=== PATIENT | female | born 1980 | race Caucasian/White ===

== ENCOUNTER 2021-07-31 16:58 | Inpatient (IN) | payer OTHER ==
[2021-07-31 20:03] VITALS: BMI 24.0
[2021-07-31] MEDS ORDERED: LOPERAMIDE HCL 2 MG CAPSULE PO PRN (21:01)
[2021-07-31] MEDS ORDERED: MAGNESIUM HYDROX 2400MG/30ML ORAL SUSPENSION 30 ML CUP PO PRN (21:01)
[2021-07-31] MEDS ORDERED: MAG HYDROX/AL HYDROX/SIMETH 30 ML UNIT-DOSE CUP PO PRN (21:01)
[2021-07-31] MEDS ORDERED: ONDANSETRON *ODT* 4 MG TABLET SL PRN (21:01)
[2021-07-31] MEDS ORDERED: MAGNESIUM CITRATE 300 ML BOTTLE PO PRN (21:01)
[2021-07-31] MEDS ORDERED: BISMUTH SUBSALICYLATE 524 MG/30 ML PO PRN (21:01)
[2021-07-31] MEDS ORDERED: MENTHOL/PHENOL 1 EACH UD MM PRN (21:01)
[2021-07-31] MEDS ORDERED: chlordiazePOXIDE HCL 25 MG CAPSULE PO PRN (21:01)
[2021-07-31] MEDS ORDERED: ACETAMINOPHEN 325 MG TABLET (FP) PO PRN ×2 (21:01)
[2021-08-01] MEDS: MELATONIN 5 MG TABLETS PO SCH ×2 (02:33→22:29)
[2021-08-01] MEDS: chlordiazePOXIDE HCL 25 MG CAPSULE PO SCH ×5 (02:33→22:46)
[2021-08-01] MEDS: THIAMINE HCL 100 MG TABLET (FP) PO SCH ×2 (02:35→22:28)
[2021-08-01] MEDS: hydrOXYzine PAMOATE 25 MG CAPSULE (FP) PO SCH ×6 (02:36→22:29)
[2021-08-01] MEDS: PRENATAL VITAMINS W/ FOLIC ACID TABLET (FP) PO SCH (10:06)
[2021-08-01] MEDS: NICOTINE 14 MG/24 HOURS TOPICAL PATCH TD SCH (10:07)
[2021-08-01] MEDS: IBUPROFEN 400 MG TABLET (FP) PO PRN ×2 (10:08→22:29)
[2021-08-01 10:52] LABS: HEMATOCRIT 34.5 % (32.4-45.2); HEMOGLOBIN 12.2 GM/dL (10.7-15.3); MCH 34.6 pg (25.7-33.7); MCHC 35.3 g/dl (32.0-36.0); MEAN PLT VOLUME 8.7 fl (7.5-11.1); PLATELET COUNT 178 10^3/uL (134-434); RBC 3.52 M/mm3 (3.60-5.2); RDW 14.2 % (11.6-15.6); WHITE BLOOD COUNT 5.1 K/mm3 (4.0-10.0)
[2021-08-01 10:55] LABS: CALCIUM 9.3 mg/dL (8.5-10.1)
[2021-08-01 10:56] LABS: ALBUMIN 3.8 g/dl (3.4-5.0); BLOOD UREA NITROGEN 8.8 mg/dL (7-18)
[2021-08-01 10:59] LABS: CREATININE 0.5 mg/dL (0.55-1.3)
[2021-08-01] MEDS: SUVOREXANT 10 MG TABLET PO PRN (22:30)
[2021-08-02] MEDS: hydrOXYzine PAMOATE 25 MG CAPSULE (FP) PO SCH ×5 (06:28→22:16)
[2021-08-02] MEDS: chlordiazePOXIDE HCL 25 MG CAPSULE PO SCH ×4 (06:28→22:13)
[2021-08-02] MEDS: PRENATAL VITAMINS W/ FOLIC ACID TABLET (FP) PO SCH (10:32)
[2021-08-02] MEDS: METHOCARBAMOL 500 MG TABLET PO PRN (10:32)
[2021-08-02] MEDS: NICOTINE 14 MG/24 HOURS TOPICAL PATCH TD SCH (10:34)
[2021-08-02] MEDS: NICOTINE 10 MG CARTRIDGE (INHALER) IH PRN (10:34)
[2021-08-02] MEDS: IBUPROFEN 400 MG TABLET (FP) PO PRN ×2 (10:35→18:07)
[2021-08-02] MEDS: MINERAL OIL/PETROLAT/WATER TOPICAL CREAM 113 GM JAR TP SCH ×2 (15:28→22:14)
[2021-08-02] MEDS: THIAMINE HCL 100 MG TABLET (FP) PO SCH (22:14)
[2021-08-02] MEDS: SUVOREXANT 10 MG TABLET PO PRN (22:15)
[2021-08-03] MEDS ORDERED: chlordiazePOXIDE HCL 10 MG CAPSULE PO PRN
[2021-08-03] MEDS: hydrOXYzine PAMOATE 25 MG CAPSULE (FP) PO SCH ×5 (05:32→22:08)
[2021-08-03] MEDS: chlordiazePOXIDE HCL 10 MG CAPSULE PO SCH ×4 (05:32→22:08)
[2021-08-03] MEDS ORDERED: HYDROCORTISONE 0.5% TOPICAL CREAM 30 GM TUBE TP PRN (10:33)
[2021-08-03] MEDS: PRENATAL VITAMINS W/ FOLIC ACID TABLET (FP) PO SCH (10:41)
[2021-08-03] MEDS: METHOCARBAMOL 500 MG TABLET PO PRN (10:41)
[2021-08-03] MEDS: MINERAL OIL/PETROLAT/WATER TOPICAL CREAM 113 GM JAR TP SCH ×2 (10:42→22:09)
[2021-08-03] MEDS: NICOTINE 14 MG/24 HOURS TOPICAL PATCH TD SCH (10:44)
[2021-08-03] MEDS: NICOTINE 10 MG CARTRIDGE (INHALER) IH PRN (10:44)
[2021-08-03] MEDS: IBUPROFEN 400 MG TABLET (FP) PO PRN ×2 (10:45→22:12)
[2021-08-03] MEDS: SUVOREXANT 10 MG TABLET PO PRN (22:08)
[2021-08-03] MEDS: THIAMINE HCL 100 MG TABLET (FP) PO SCH (22:08)
[2021-08-04] MEDS ORDERED: chlordiazePOXIDE HCL 10 MG CAPSULE PO SCH (05:00)
[2021-08-04] MEDS: hydrOXYzine PAMOATE 25 MG CAPSULE (FP) PO SCH ×2 (06:08→10:23)
[2021-08-04] MEDS: IBUPROFEN 400 MG TABLET (FP) PO PRN (06:09)
[2021-08-04 09:38] VITALS: BP 104/53; PULSE 87; TEMP 98.2
[2021-08-04] MEDS: METHOCARBAMOL 500 MG TABLET PO PRN (10:21)
[2021-08-04] MEDS: PRENATAL VITAMINS W/ FOLIC ACID TABLET (FP) PO SCH (10:23)
[2021-08-04] MEDS: NICOTINE 14 MG/24 HOURS TOPICAL PATCH TD SCH (10:24)
[2021-08-04] MEDS: MINERAL OIL/PETROLAT/WATER TOPICAL CREAM 113 GM JAR TP SCH (10:25)
[2021-08-05] MEDS ORDERED: chlordiazePOXIDE HCL 10 MG CAPSULE PO ONE (05:00)
== END 2021-08-04 15:00 | disposition home or self-care (01) | DRG 775 ==
LOC: YASAS 16:58 → Y6N 23:23
PROVIDERS: ADMIT Allergy & Immunology; ATTEND Allergy & Immunology
PROC: HZ2ZZZZ Detoxification Services for Substance Abuse Treatment (ICD-10-PCS; principal; 2021-07-31)
DX: F10.230 Alcohol dependence with withdrawal, uncomplicated (principal); F17.210 Nicotine dependence, cigarettes, uncomplicated; F10.280 Alcohol dependence with alcohol-induced anxiety disorder; F10.282 Alcohol dependence with alcohol-induced sleep disorder; F41.9 Anxiety disorder, unspecified; F41.0 Panic disorder [episodic paroxysmal anxiety]; D53.1 Other megaloblastic anemias, not elsewhere classified; J45.909 Unspecified asthma, uncomplicated; L30.9 Dermatitis, unspecified; Z62.810 Personal history of physical and sexual abuse in childhood; Z91.410 Personal history of adult physical and sexual abuse
CPT/HCPCS: 36415; 80053; 81025; 82306; 82607; 82747; 85014; 85027; 86780; 93005; 93010; C9803; Q0162; U0003; U0005

== ENCOUNTER 2021-08-28 13:30 | Inpatient (IN) | payer OTHER ==
[2021-08-28] MEDS ORDERED: MAGNESIUM CITRATE 300 ML BOTTLE PO PRN (14:37)
[2021-08-28] MEDS ORDERED: ACETAMINOPHEN 325 MG TABLET (FP) PO PRN (14:37)
[2021-08-28] MEDS ORDERED: MENTHOL/PHENOL 1 EACH UD MM PRN (14:37)
[2021-08-28] MEDS ORDERED: NICOTINE 10 MG CARTRIDGE (INHALER) IH PRN (14:37)
[2021-08-28] MEDS ORDERED: BISMUTH SUBSALICYLATE 262 MG/15 ML BTL PO PRN (14:37)
[2021-08-28] MEDS ORDERED: DICYCLOMINE HCL 10 MG CAPSULE PO PRN (14:37)
[2021-08-28] MEDS ORDERED: chlordiazePOXIDE HCL 25 MG CAPSULE PO PRN (14:37)
[2021-08-28] MEDS ORDERED: LOPERAMIDE HCL 2 MG CAPSULE PO PRN (14:37)
[2021-08-28] MEDS ORDERED: MAG HYDROX/AL HYDROX/SIMETH 30 ML UNIT-DOSE CUP PO PRN (14:37)
[2021-08-28] MEDS ORDERED: MAGNESIUM HYDROX 2400MG/30ML ORAL SUSPENSION 30 ML CUP PO PRN (14:37)
[2021-08-28] MEDS ORDERED: ALBUTEROL SO4 HFA INHALER IH PRN (14:41)
[2021-08-28] MEDS ORDERED: chlordiazePOXIDE HCL 25 MG CAPSULE PO ONE (14:52)
[2021-08-28 18:15] VITALS: BMI 22.4
[2021-08-28] MEDS: chlordiazePOXIDE HCL 25 MG CAPSULE PO SCH ×2 (18:50→22:28)
[2021-08-28] MEDS: hydrOXYzine PAMOATE 25 MG CAPSULE (FP) PO SCH ×2 (18:50→22:28)
[2021-08-28] MEDS: ONDANSETRON *ODT* 4 MG TABLET SL PRN (18:53)
[2021-08-28] MEDS: PRENATAL VITAMINS W/ FOLIC ACID TABLET (FP) PO SCH (18:53)
[2021-08-28] MEDS ORDERED: MELATONIN 5 MG TABLETS PO SCH (22:00)
[2021-08-28] MEDS: THIAMINE HCL 100 MG TABLET (FP) PO SCH (22:28)
[2021-08-29] MEDS: chlordiazePOXIDE HCL 25 MG CAPSULE PO SCH ×4 (06:15→22:29)
[2021-08-29] MEDS: hydrOXYzine PAMOATE 25 MG CAPSULE (FP) PO SCH ×5 (06:15→22:30)
[2021-08-29] MEDS: IBUPROFEN 400 MG TABLET (FP) PO PRN ×2 (06:16→22:29)
[2021-08-29 10:03] LABS: HEMATOCRIT 33.9 % (32.4-45.2); HEMOGLOBIN 11.6 GM/dL (10.7-15.3); MCH 34.6 pg (25.7-33.7); MCHC 34.3 g/dl (32.0-36.0); MEAN CELL VOLUME 100.7 fl (80-96); MEAN PLT VOLUME 7.8 fl (7.5-11.1); PLATELET COUNT 177 10^3/uL (134-434); RBC 3.36 M/mm3 (3.60-5.2); RDW 15.4 % (11.6-15.6); WHITE BLOOD COUNT 5.4 K/mm3 (4.0-10.0)
[2021-08-29 10:13] LABS: BLOOD UREA NITROGEN 7.8 mg/dL (7-18); CALCIUM 8.6 mg/dL (8.5-10.1)
[2021-08-29 10:15] LABS: CREATININE 0.5 mg/dL (0.55-1.3)
[2021-08-29] MEDS: PRENATAL VITAMINS W/ FOLIC ACID TABLET (FP) PO SCH (10:17)
[2021-08-29 10:18] LABS: BILIRUBIN,TOTAL 0.7 mg/dL (0.2-1)
[2021-08-29] MEDS ORDERED: HYDROCORTISONE 1% TOPICAL OINT 30 GM TUBE TP PRN (10:41)
[2021-08-29] MEDS: LORATADINE 10 MG TABLET PO SCH (12:25)
[2021-08-29] MEDS: POTASSIUM CHLORIDE TABS 20 MEQ TABLET.ER (FP) PO SCH ×2 (13:39→22:30)
[2021-08-29] MEDS: ACETAMINOPHEN 325 MG TABLET (FP) PO PRN (17:31)
[2021-08-29] MEDS: ONDANSETRON *ODT* 4 MG TABLET SL PRN (17:31)
[2021-08-29] MEDS: SUVOREXANT 10 MG TABLET PO PRN (22:28)
[2021-08-29] MEDS: THIAMINE HCL 100 MG TABLET (FP) PO SCH (22:30)
[2021-08-30] MEDS: hydrOXYzine PAMOATE 25 MG CAPSULE (FP) PO SCH ×5 (06:59→23:17)
[2021-08-30] MEDS: chlordiazePOXIDE HCL 25 MG CAPSULE PO SCH ×4 (06:59→22:09)
[2021-08-30] MEDS: METHOCARBAMOL 500 MG TABLET PO PRN ×2 (07:02→22:11)
[2021-08-30] MEDS: IBUPROFEN 400 MG TABLET (FP) PO PRN ×3 (07:02→22:11)
[2021-08-30] MEDS: POTASSIUM CHLORIDE TABS 20 MEQ TABLET.ER (FP) PO SCH ×2 (10:42→22:09)
[2021-08-30] MEDS: LORATADINE 10 MG TABLET PO SCH (10:42)
[2021-08-30] MEDS: PRENATAL VITAMINS W/ FOLIC ACID TABLET (FP) PO SCH (10:42)
[2021-08-30] MEDS: ONDANSETRON *ODT* 4 MG TABLET SL PRN (10:45)
[2021-08-30 15:08] LABS: SARS-CoV-2 NAA Not Detected (Not Detected)
[2021-08-30] MEDS: ACETAMINOPHEN 325 MG TABLET (FP) PO PRN (17:28)
[2021-08-30] MEDS: THIAMINE HCL 100 MG TABLET (FP) PO SCH (22:09)
[2021-08-30] MEDS: SUVOREXANT 10 MG TABLET PO PRN (22:12)
[2021-08-31] MEDS ORDERED: chlordiazePOXIDE HCL 10 MG CAPSULE PO PRN
[2021-08-31] MEDS: hydrOXYzine PAMOATE 25 MG CAPSULE (FP) PO SCH ×2 (06:56→10:15)
[2021-08-31] MEDS: chlordiazePOXIDE HCL 10 MG CAPSULE PO SCH ×2 (06:56→10:15)
[2021-08-31] MEDS: ACETAMINOPHEN 325 MG TABLET (FP) PO PRN (06:57)
[2021-08-31 09:02] VITALS: BP 105/69; PULSE 60; TEMP 97.3
[2021-08-31] MEDS: PRENATAL VITAMINS W/ FOLIC ACID TABLET (FP) PO SCH (10:15)
[2021-08-31] MEDS: POTASSIUM CHLORIDE TABS 20 MEQ TABLET.ER (FP) PO SCH (10:15)
[2021-08-31] MEDS: LORATADINE 10 MG TABLET PO SCH (10:15)
[2021-08-31] MEDS ORDERED: FOLIC ACID 1 MG TABLET (FP) PO SCH (11:15)
[2021-08-31] MEDS ORDERED: CYANOCOBALAMIN 1,000 MCG TABLET (FP) PO SCH (11:15)
[2021-09-01] MEDS ORDERED: chlordiazePOXIDE HCL 10 MG CAPSULE PO SCH (05:00)
[2021-09-02] MEDS ORDERED: chlordiazePOXIDE HCL 10 MG CAPSULE PO ONE (05:00)
== END 2021-08-31 12:07 | disposition home or self-care (01) | DRG 775 ==
LOC: YASAS 13:30 → Y3N 17:07
PROVIDERS: ADMIT Allergy & Immunology; ATTEND Allergy & Immunology
PROC: HZ2ZZZZ Detoxification Services for Substance Abuse Treatment (ICD-10-PCS; principal; 2021-08-28)
DX: F10.230 Alcohol dependence with withdrawal, uncomplicated (principal); F12.10 Cannabis abuse, uncomplicated; F17.210 Nicotine dependence, cigarettes, uncomplicated; F41.9 Anxiety disorder, unspecified; F41.0 Panic disorder [episodic paroxysmal anxiety]; G47.00 Insomnia, unspecified; J45.909 Unspecified asthma, uncomplicated; J30.2 Other seasonal allergic rhinitis; D64.9 Anemia, unspecified; Z59.02 Unsheltered homelessness; Z56.0 Unemployment, unspecified
CPT/HCPCS: 36415; 80053; 81025; 84132; 85027; 86780; C9803-CS; Q0162; U0003; U0005

== ENCOUNTER 2021-09-10 12:27 | Inpatient (IN) | payer OTHER ==
[2021-09-10] MEDS ORDERED: MAGNESIUM HYDROX 2400MG/30ML ORAL SUSPENSION 30 ML CUP PO PRN (13:27)
[2021-09-10] MEDS ORDERED: chlordiazePOXIDE HCL 25 MG CAPSULE PO PRN (13:27)
[2021-09-10] MEDS ORDERED: MAG HYDROX/AL HYDROX/SIMETH 30 ML UNIT-DOSE CUP PO PRN (13:27)
[2021-09-10] MEDS ORDERED: DICYCLOMINE HCL 10 MG CAPSULE PO PRN (13:27)
[2021-09-10] MEDS ORDERED: MAGNESIUM CITRATE 300 ML BOTTLE PO PRN (13:27)
[2021-09-10] MEDS ORDERED: BENZOCAINE/MENTHOL (CHLORASEPTIC ) LOZENGE MM PRN (13:27)
[2021-09-10] MEDS ORDERED: ACETAMINOPHEN 325 MG TABLET (FP) PO PRN (13:27)
[2021-09-10] MEDS ORDERED: BISMUTH SUBSALICYLATE 262 MG/15 ML BTL PO PRN (13:27)
[2021-09-10] MEDS ORDERED: ALBUTEROL SO4 HFA INHALER IH PRN (13:31)
[2021-09-10 14:38] VITALS: BMI 22.6
[2021-09-10] MEDS: ONDANSETRON *ODT* 4 MG TABLET SL PRN (17:22)
[2021-09-10] MEDS: hydrOXYzine PAMOATE 25 MG CAPSULE (FP) PO SCH ×3 (17:22→22:51)
[2021-09-10] MEDS: chlordiazePOXIDE HCL 25 MG CAPSULE PO SCH ×2 (17:22→22:50)
[2021-09-10] MEDS: PRENATAL VITAMINS W/ FOLIC ACID TABLET (FP) PO SCH (17:24)
[2021-09-10] MEDS: METHOCARBAMOL 500 MG TABLET PO PRN (17:24)
[2021-09-10 17:26] LABS: HEMATOCRIT 35.9 % (32.4-45.2); HEMOGLOBIN 12.5 GM/dL (10.7-15.3); MCH 35.6 pg (25.7-33.7); MCHC 34.9 g/dl (32.0-36.0); MEAN CELL VOLUME 102.1 fl (80-96); MEAN PLT VOLUME 8.7 fl (7.5-11.1); PLATELET COUNT 148 10^3/uL (134-434); RBC 3.52 M/mm3 (3.60-5.2); WHITE BLOOD COUNT 5.6 K/mm3 (4.0-10.0)
[2021-09-10 17:31] LABS: CALCIUM 9.3 mg/dL (8.5-10.1)
[2021-09-10 17:32] LABS: BLOOD UREA NITROGEN 10.5 mg/dL (7-18)
[2021-09-10 17:35] LABS: CREATININE 0.7 mg/dL (0.55-1.3)
[2021-09-10 17:37] LABS: BILIRUBIN,TOTAL 1.3 mg/dL (0.2-1); TOT PROT 7.3 g/dl (6.4-8.2)
[2021-09-10] MEDS: MELATONIN 5 MG TABLETS PO SCH (22:50)
[2021-09-10] MEDS: THIAMINE HCL 100 MG TABLET (FP) PO SCH (22:50)
[2021-09-10] MEDS: IBUPROFEN 400 MG TABLET (FP) PO PRN (22:52)
[2021-09-11] MEDS: IBUPROFEN 400 MG TABLET (FP) PO PRN ×3 (06:00→22:53)
[2021-09-11] MEDS: METHOCARBAMOL 500 MG TABLET PO PRN (06:42)
[2021-09-11] MEDS: hydrOXYzine PAMOATE 25 MG CAPSULE (FP) PO SCH ×5 (06:42→23:02)
[2021-09-11] MEDS: chlordiazePOXIDE HCL 25 MG CAPSULE PO SCH ×4 (06:42→22:52)
[2021-09-11] MEDS: NICOTINE 10 MG CARTRIDGE (INHALER) IH PRN (10:19)
[2021-09-11] MEDS: PRENATAL VITAMINS W/ FOLIC ACID TABLET (FP) PO SCH (10:20)
[2021-09-11] MEDS: NICOTINE 7 MG/24 HOURS TOPICAL PATCH TD SCH (10:20)
[2021-09-11] MEDS: LOPERAMIDE HCL 2 MG CAPSULE PO PRN (17:20)
[2021-09-11] MEDS: ACETAMINOPHEN 325 MG TABLET (FP) PO PRN (18:20)
[2021-09-11] MEDS: ONDANSETRON *ODT* 4 MG TABLET SL PRN (18:21)
[2021-09-11] MEDS: MELATONIN 5 MG TABLETS PO SCH (22:51)
[2021-09-11] MEDS: THIAMINE HCL 100 MG TABLET (FP) PO SCH (22:51)
[2021-09-12] MEDS: chlordiazePOXIDE HCL 25 MG CAPSULE PO SCH ×4 (05:44→22:26)
[2021-09-12] MEDS: hydrOXYzine PAMOATE 25 MG CAPSULE (FP) PO SCH ×5 (05:44→22:26)
[2021-09-12] MEDS: METHOCARBAMOL 500 MG TABLET PO PRN ×3 (05:46→22:28)
[2021-09-12] MEDS: IBUPROFEN 400 MG TABLET (FP) PO PRN ×2 (05:46→22:27)
[2021-09-12] MEDS: PRENATAL VITAMINS W/ FOLIC ACID TABLET (FP) PO SCH (10:16)
[2021-09-12] MEDS: NICOTINE 7 MG/24 HOURS TOPICAL PATCH TD SCH (10:16)
[2021-09-12] MEDS: NICOTINE 10 MG CARTRIDGE (INHALER) IH PRN (10:16)
[2021-09-12] MEDS: ACETAMINOPHEN 325 MG TABLET (FP) PO PRN (10:19)
[2021-09-12 14:08] LABS: SARS-CoV-2 NAA Not Detected (Not Detected)
[2021-09-12] MEDS: LOPERAMIDE HCL 2 MG CAPSULE PO PRN (14:13)
[2021-09-12] MEDS: FLUOCINONIDE 0.05% CREAM (60 GM TUBE) TP SCH (22:25)
[2021-09-12] MEDS: MELATONIN 5 MG TABLETS PO SCH (22:26)
[2021-09-12] MEDS: THIAMINE HCL 100 MG TABLET (FP) PO SCH (22:26)
[2021-09-13] MEDS ORDERED: chlordiazePOXIDE HCL 10 MG CAPSULE PO PRN
[2021-09-13] MEDS: METHOCARBAMOL 500 MG TABLET PO PRN (07:00)
[2021-09-13] MEDS: chlordiazePOXIDE HCL 10 MG CAPSULE PO SCH ×2 (07:01→10:12)
[2021-09-13] MEDS: IBUPROFEN 400 MG TABLET (FP) PO PRN (07:02)
[2021-09-13] MEDS: hydrOXYzine PAMOATE 25 MG CAPSULE (FP) PO SCH ×2 (07:02→10:12)
[2021-09-13 09:49] VITALS: BP 107/70; PULSE 69; TEMP 98
[2021-09-13] MEDS: FLUOCINONIDE 0.05% CREAM (60 GM TUBE) TP SCH (10:10)
[2021-09-13] MEDS: NICOTINE 10 MG CARTRIDGE (INHALER) IH PRN (10:11)
[2021-09-13] MEDS: PRENATAL VITAMINS W/ FOLIC ACID TABLET (FP) PO SCH (10:11)
[2021-09-13] MEDS: LOPERAMIDE HCL 2 MG CAPSULE PO PRN (10:14)
[2021-09-13] MEDS: NICOTINE 7 MG/24 HOURS TOPICAL PATCH TD SCH (10:15)
[2021-09-14] MEDS ORDERED: chlordiazePOXIDE HCL 10 MG CAPSULE PO SCH (05:00)
[2021-09-15] MEDS ORDERED: chlordiazePOXIDE HCL 10 MG CAPSULE PO ONE (05:00)
== END 2021-09-13 11:33 | disposition home or self-care (01) | DRG 775 ==
LOC: YASAS 12:27 → Y3N 15:17
PROVIDERS: ADMIT Allergy & Immunology; ATTEND Allergy & Immunology
PROC: HZ2ZZZZ Detoxification Services for Substance Abuse Treatment (ICD-10-PCS; principal; 2021-09-10)
DX: F10.230 Alcohol dependence with withdrawal, uncomplicated (principal); F12.20 Cannabis dependence, uncomplicated; F17.210 Nicotine dependence, cigarettes, uncomplicated; F41.9 Anxiety disorder, unspecified; G47.00 Insomnia, unspecified; J45.909 Unspecified asthma, uncomplicated; J30.2 Other seasonal allergic rhinitis; L30.9 Dermatitis, unspecified; Z62.810 Personal history of physical and sexual abuse in childhood; Z91.410 Personal history of adult physical and sexual abuse; Z99.89 Dependence on other enabling machines and devices; Z56.0 Unemployment, unspecified; Z59.02 Unsheltered homelessness
CPT/HCPCS: 36415; 80053; 81025; 82947; 83036; 85027; 86780; C9803-CS; Q0162; U0003; U0005

== ENCOUNTER 2023-10-08 15:09 | Inpatient (IN) | payer OTHER ==
[2023-10-08 18:45] VITALS: BMI 20.2
[2023-10-08] MEDS ORDERED: DICYCLOMINE HCL 10 MG CAPSULE PO PRN (19:11)
[2023-10-08] MEDS ORDERED: NICOTINE POLACRILEX 2 MG GUM BUC PRN (19:11)
[2023-10-08] MEDS ORDERED: NICOTINE POLACRILEX 2 MG LOZENGE BC PRN (19:11)
[2023-10-08] MEDS ORDERED: POLYETHYLENE GLYCOL (HEALTHYLAX) 3350 17 GM PACKET PO PRN (19:11)
[2023-10-08] MEDS ORDERED: MAGNESIUM HYDROX 2400MG/30ML ORAL SUSPENSION 30 ML CUP PO PRN (19:11)
[2023-10-08] MEDS ORDERED: LOPERAMIDE HCL 2 MG CAPSULE PO PRN (19:11)
[2023-10-08] MEDS ORDERED: BENZONATATE 200 MG CAPSULE PO PRN (19:11)
[2023-10-08] MEDS ORDERED: BISMUTH SUBSALICYLATE 524 MG/30 ML PO PRN (19:11)
[2023-10-08] MEDS ORDERED: BENZOCAINE/MENTHOL (CHLORASEPTIC ) LOZENGE MM PRN (19:11)
[2023-10-08] MEDS ORDERED: guaiFENesin 600 MG TABLET.ER (FP) PO PRN (19:11)
[2023-10-08] MEDS: chlordiazePOXIDE HCL 25 MG CAPSULE PO SCH (22:10)
[2023-10-08] MEDS: levETIRAcetam 500 MG TABLET (FP) PO SCH (22:10)
[2023-10-08] MEDS: MELATONIN 5 MG TABLETS PO SCH (22:10)
[2023-10-08] MEDS: THIAMINE 100 MG TABLET PO SCH (22:10)
[2023-10-08] MEDS: ACETAMINOPHEN 325 MG TABLET (FP) PO PRN (22:11)
[2023-10-09] MEDS: ONDANSETRON *ODT* 4 MG TABLET SL PRN (08:52)
[2023-10-09] MEDS: PRENATAL VITAMINS W/ FOLIC ACID TABLET (FP) PO SCH (10:21)
[2023-10-09] MEDS: chlordiazePOXIDE HCL 25 MG CAPSULE PO PRN (13:38)
[2023-10-09] MEDS: IBUPROFEN 600 MG TABLET (FP) PO PRN (13:38)
[2023-10-09 13:43] LABS: HEMATOCRIT 32.2 % (32.4-45.2); HEMOGLOBIN 10.8 GM/dL (10.7-15.3); MCH 32.9 pg (25.7-33.7); MCHC 33.5 g/dl (32.0-36.0); MEAN CELL VOLUME 98.1 fl (80-96); MEAN PLT VOLUME 8.9 fl (7.5-11.1); PLATELET COUNT 55 10^3/uL (134-434); RBC 3.28 M/mm3 (3.60-5.2); RDW 14.7 % (11.6-15.6)
[2023-10-09 13:53] LABS: POTASSIUM 3.5 mmol/L (3.5-5.1)
[2023-10-09 13:56] LABS: CALCIUM 9.1 mg/dL (8.5-10.1)
[2023-10-09 13:58] LABS: ALBUMIN 3.4 g/dl (3.4-5.0)
[2023-10-09 14:01] LABS: BLOOD UREA NITROGEN 10.2 mg/dL (7-18); CREATININE 0.5 mg/dL (0.55-1.3)
[2023-10-09 14:02] LABS: BILIRUBIN,TOTAL 0.8 mg/dL (0.2-1); TOT PROT 6.5 g/dl (6.4-8.2)
[2023-10-09] MEDS: METHOCARBAMOL 500 MG TABLET PO PRN (17:37)
[2023-10-10] MEDS: chlordiazePOXIDE HCL 25 MG CAPSULE PO SCH (05:29)
[2023-10-10] MEDS: ALBUTEROL SO4 HFA INHALER IH PRN (22:23)
[2023-10-11] MEDS ORDERED: chlordiazePOXIDE HCL 10 MG CAPSULE PO PRN
[2023-10-11] MEDS: chlordiazePOXIDE HCL 10 MG CAPSULE PO SCH (05:45)
[2023-10-11] MEDS: IBUPROFEN 400 MG TABLET (FP) PO PRN (17:41)
[2023-10-12] MEDS: chlordiazePOXIDE HCL 10 MG CAPSULE PO SCH (05:50)
[2023-10-12] MEDS: BACITRACIN 0.9 GM PACKET TP SCH (10:37)
[2023-10-12] MEDS: LIDOCAINE 5% TOPICAL PATCH TP SCH (10:37)
[2023-10-12] MEDS: LORazepam 0.5 MG TABLET PO ONE (17:31)
[2023-10-12] MEDS: LIDOCAINE PATCH REMOVAL MC SCH (22:05)
[2023-10-12] MEDS: hydrOXYzine PAMOATE 25 MG CAPSULE (FP) PO PRN (22:07)
[2023-10-12] MEDS: MAG HYDROX/AL HYDROX/SIMETH 30 ML UNIT-DOSE CUP PO PRN (22:18)
[2023-10-13] MEDS ORDERED: chlordiazePOXIDE HCL 10 MG CAPSULE PO ONE (05:00)
[2023-10-13] MEDS: LORazepam 0.5 MG TABLET PO ONE (05:52)
[2023-10-13 09:07] VITALS: BP 121/83; PULSE 80; RESP 18; TEMP 97.6
== END 2023-10-13 10:22 | disposition home or self-care (01) | DRG 775 ==
LOC: YASAS 15:09 → Y6N 20:37
PROVIDERS: ADMIT Allergy & Immunology; ATTEND Surgery
PROC: HZ2ZZZZ Detoxification Services for Substance Abuse Treatment (ICD-10-PCS; principal; 2023-10-08)
DX: F10.230 Alcohol dependence with withdrawal, uncomplicated (principal); F12.20 Cannabis dependence, uncomplicated; F17.213 Nicotine dependence, cigarettes, with withdrawal; F10.280 Alcohol dependence with alcohol-induced anxiety disorder; F10.282 Alcohol dependence with alcohol-induced sleep disorder; F41.9 Anxiety disorder, unspecified; J45.20 Mild intermittent asthma, uncomplicated; L30.9 Dermatitis, unspecified; J30.9 Allergic rhinitis, unspecified; Z62.810 Personal history of physical and sexual abuse in childhood; Z63.8 Other specified problems related to primary support group; Z86.69 Personal history of other diseases of the nervous system and sense organs; Z99.89 Dependence on other enabling machines and devices; Z56.0 Unemployment, unspecified; Z59.00 Homelessness unspecified
CPT/HCPCS: 36415; 80053; 80305; 81025; 85027; 86780; 93005; 93010; Q0162